=== PATIENT | male | born 1970 | race Two or more races ===

== ENCOUNTER 2018-06-19 11:05 | Day surgery (SDC) | payer OTHER ==
[2018-06-19] MEDS ORDERED: LIDOCAINE 1% 300 MG/30 ML SDV SC ONE (11:08)
--- NOTE | 2018-06-19 11:54 | PDGENHP ---
History & Physical Chief Complaint: palpitations History of Present Illness: h/o apical HCM Relevant Physical Exam: [id number] rrr cta ao3 Cardiorespiratory Assessment: for CONFIRM ILR implant to see if patient has nonsustained VT as etiology of his palpitations. If confirmed, patient may need ICD
--- NOTE | 2018-06-19 12:08 | EPPROC ---
Electrophysiology Procedure Note: SJM Confirm Implant Local anesthetic, placed in standard fashion. No complications. Indication - to assess for VT in patient with apical HCM SN [id number] Automatic detection HR <40 >150 bpm Patient Problems: Problems Problem Status Onset Hypertrophic cardiomyopathy Acute
== END 2018-06-19 13:07 | disposition home or self-care (01) ==
LOC: FCATH 11:05
PROVIDERS: ATTEND Internal Medicine Cardiovascular Disease
PROC: 0JH602Z Insertion of Monitoring Device into Chest Subcutaneous Tissue and Fascia, Open Approach (ICD-10-PCS; principal; 2018-06-19)
DX: I42.2 Other hypertrophic cardiomyopathy (principal)